=== PATIENT | female | born 1945 | race Caucasian/White ===

== ENCOUNTER 2020-05-08 14:37 | Outpatient (RCR) | payer MEDICARE, SELFPAY | END 2020-05-08 23:59 | LOC: IMMUN 14:37 | PROVIDERS: PCP Family Medicine; Referring Provider Family Medicine; Visit Provider Family Medicine | DX: Z23 Encounter for immunization (principal) | CPT/HCPCS: 0011A; 0012A; 91301 ==

== ENCOUNTER → 2023-09-27 | Outpatient (CLI) | payer MEDICARE, SELFPAY ==
--- NOTE | 2023-09-27 11:30 | LES_PTH ---
PATIENT: SAKSHI REYES LOC: [facility] U#:[id number] AGE/SX: 78/F ROOM: RE09/27/[address]: Dr. Sherman Garcia MD : 1945 BED: DIS: 09/27/2023 SPEC #: [id number] RECD: 09/27/23 15:16 STATUS: CEDRIC MORALESAmy #: [id number] KEYSHA: 09/27/23 11:[address]: Sherman Garcia DEPT: SURGICAL PATHOLOGY RECD BY: Charles Carrasco ENTERED: 09/28/23 06:40 SP TYPE: Lesion OTHR DR: Dr. Marisel Can MD Tissues: Skin of eyelid, NOS Procedures: Surgery Specimen Level IV HEADER OPERATION: Left upper lid lesion excision PRE-OP DIAGNOSIS: Left upper lid TISSUE SUBMITTED: Left upper lid MICROSCOPIC DIAGNOSIS Left upper eyelid lesion, excision: Intradermal nevus. JYOTI/ 09/29/2023 MICROSCOPIC DESCRIPTION Slides are reviewed. GROSS DESCRIPTION Received in fixative is one container labeled with the patient's name and designated Left upper lid. The specimen consists of a piece of tse-white skin measuring 0.3 x 0.2 x 0.1cm. The entire specimen is submitted in one cassette.JYOTI/ 09/28/2023 TC:1 CPT:85768
== END | disposition home or self-care (01) ==
PROVIDERS: PCP Family Medicine; Referring Provider Ophthalmology; Visit Provider Ophthalmology
DX: D23.121 Other benign neoplasm of skin of left upper eyelid, including canthus (principal)
CPT/HCPCS: 88305